=== PATIENT | female | born 1970 | race Caucasian/White ===

== ENCOUNTER 2017-01-12 17:52 | Emergency (ER) | payer BC, OTHER ==
--- NOTE | 2017-01-12 17:53 | PDOC ---
History of Present Illness - General History Source: Patient Exam Limitations: No Limitations <Elizabeth Jeronimo - Last Filed: 01/12/17 18:59> - General History Source: Patient Exam Limitations: No Limitations <Concepcion Acosta - Last Filed: 01/13/17 08:41> - General Chief Complaint: Chest Pain Stated Complaint: chest pain Time Seen by Provider: 01/12/17 17:52 - History of Present Illness Initial Comments: 01/12/17 18:12 The patient is a 46 year old female, with no significant past medical history , who presents today complaining of chest pain that feels like pressure which woke her up from sleep at 5:30 this morning. She notes that she felt some tingling in the left palm at the same time that she woke up, but the tingling resolved when she stopped leaning on her hand. She took a Tums and the chest pain resolved until 4:30 this evening. The pain feels like the same pressure as this morning and has not worsened. She notes that she had fried chicken last night for dinner and had a salad today for lunch. She notes that she had an endoscopy recently and was told by the doctor that she can take zantac as needed. Denies nausea, vomiting, fever, chills. Denies SOB, palpitations. Denies cough. Allergies: NKDA (Elizabeth Jeronimo) Past History <Elizabeth Jeronimo - Last Filed: 01/12/17 18:59> <Concepcion Acosta - Last Filed: 01/13/17 08:41> - Past Medical History Allergies/Adverse Reactions: Allergies Allergy/AdvReac Type Severity Reaction Status Date / Time No Known Allergies Allergy Verified 01/12/17 17:53 Home Medications: Ambulatory Orders NK [No Known Home Medication] 01/12/17 Review of Systems <Elizabeth Jeronimo - Last Filed: 01/12/17 18:59> <Concepcion Acosta - Last Filed: 01/13/17 08:41> - Review of Systems Comments:: 01/12/17 18:13 GENERAL/CONSTITUTIONAL: No: fever, chills, weakness, loss of appetite. HEAD, EYES, EARS, NOSE AND THROAT: No: change in vision, ear pain, discharge, sore throat, throat swelling. CARDIOVASCULAR: +chest pain. No: lightheadedness, palpitations, syncope RESPIRATORY: No: cough, shortness of breath, wheezing, hemoptysis, stridor. GASTROINTESTINAL: No: nausea, vomiting, abdominal cramping, diarrhea, rectal bleeding, constipation. GENITOURINARY: No: dysuria, hematuria, frequency, urgency, flank pain. MUSCULOSKELETAL: No: back pain, neck pain, joint pain, muscle swelling or pain SKIN: No: lesions, pallor, rash or easy bruising. NEUROLOGIC: No: headache, vertigo, paresthesias, weakness ENDOCRINE: No: unexplained weight gain or loss HEMATOLOGIC/LYMPHATIC: No: anemia, easy bleeding, swelling nodes (Elizabeth Jeronimo) *Physical Exam <Elizabeth Jeronimo - Last Filed: 01/12/17 18:59> <Concepcion Acosta - Last Filed: 01/13/17 08:41> - Vital Signs Last Vital Signs Temp Pulse Resp BP Pulse Ox 98.5 F 82 20 125/82 99 01/12/17 17:52 01/12/17 17:52 01/12/17 17:52 01/12/17 17:52 01/12/17 17:52 - Physical Exam Comments: 01/12/17 18:59 GENERAL: The patient is in no acute distress. HEAD: Normal with no signs of trauma. EYES: PERRLA, EOMI, sclera anicteric, conjunctiva clear. ENT: Ears normal, nares patent, oropharynx clear without exudates. Moist mucous membranes. NECK: Normal range of motion, supple without lymphadenopathy, JVD, or masses. LUNGS: Breath sounds equal, clear to auscultation bilaterally. No wheezes, and no crackles. HEART:Regular rate and rhythm, normal S1 and S2 without murmur, rub or gallop. ABDOMEN: Soft, nontender, normoactive bowel sounds. No guarding, no rebound. EXTREMITIES: Normal range of motion, no edema. No clubbing or cyanosis. No erythema, or tenderness. NEUROLOGICAL: Cranial nerves II through XII grossly intact. Normal speech. No focal neurological deficits. MUSCULOSKELETAL: Back nontender to palpation, no CVA tenderness SKIN: Warm, Dry, normal turgor, no rashes or lesions noted. (Elizabeth Jeronimo) Heart Score/ECG Review <Elizabeth Jeronimo - Last Filed: 01/12/17 18:59> #1 ECG reviewed & interpreted by me at: 18:22 <Concepcion Acosta - Last Filed: 01/13/17 08:41> #1 01/12/17 18:23 Twelve-lead EKG was performed and reviewed by me. There is normal sinus rhythm with a normal rate of 70 bpm. The axis is normal. The intervals are normal - pr: 170ms, QRS:86ms, QTc:434ms. There are no ST or T wave abnormalities. Impression: Normal twelve-lead EKG (Concepcion Acosta) ED Treatment Course - LABORATORY CBC & Chemistry Diagram: 01/12/17 18:14 01/12/17 18:14 <Elizabeth Jeronimo - Last Filed: 01/12/17 18:59> - LABORATORY CBC & Chemistry Diagram: 01/12/17 18:14 01/12/17 18:14 <Concepcion Acosta - Last Filed: 01/13/17 08:41> - ADDITIONAL ORDERS Additional order review: Laboratory Results 01/12/17 01/12/17 22:20 18:20 Troponin I < 0.03 L Beta HCG, Quant 3.8 01/12/17 18:14 RBC 4.54 MCV 78.9 L MCHC 33.5 RDW 15.3 MPV 9.1 Neutrophils % 53.7 Lymphocytes % 36.1 Monocytes % 7.3 Eosinophils % 1.8 Basophils % 1.1 - Medications Given in the ED: ED Medications Discontinued Medications Generic Name Dose Route Start Last Admin Trade Name Xvaierq PRN Reason Stop Dose Admin Al Hydroxide/Mg Hydroxide 30 ml 01/12/17 18:07 01/12/17 18:33 Mylanta Oral Suspension - PO 01/12/17 18:08 30 ml ONCE ONE Administration Ranitidine HCl 150 mg 01/12/17 18:07 01/12/17 18:33 Zantac - PO 01/12/17 18:08 150 mg ONCE ONE Administration Medical Decision Making <Elizabeth Jeronimo - Last Filed: 01/12/17 18:59> <Concepcion Acosta - Last Filed: 01/13/17 08:41> - Medical Decision Making A portion of this note was documented by scribe services under my direction. I have reviewed the details of the note, within reason, and agree with the documentation with the following case summary and management plan written by me. Nursing documentation reviewed and incorporated into medical decision making 01/12/17 18:24 This is a 46-year-old female with no significant past medical history, no cardiac risk factors who presents emergency department with a complaint of chest pain. Patient states she woke with her symptoms this morning, describes them as pressure. Symptoms are nonexertional. Symptoms are not associated with diaphoresis or nausea. Symptoms are not associated with syncope, loss of postural stability Chest pain does not radiate to the arms or back. No prior episodes like this. Patient states when her symptoms began, she took an aspirin and noted resolution of her symptoms. This evening at approximately 4:00 her symptoms returned again. DD includes: Gastritis/dyspepsia, ACS (less likely given paucity of risk factors ), unlikely PE (PERC neg, Wells Low risk), Will do labs Will do EKG Will re assess Pt signed out to Dr Musa (Concepcion Acosta) *DC/Admit/Observation/Transfer <Elizabeth Jeronimo - Last Filed: 01/12/17 18:59> - Discharge Dispostion Admit: No <Concepcion Acosta - Last Filed: 01/13/17 08:41> Diagnosis at time of Disposition: Dyspepsia Chest pain Qualifiers: Chest pain type: unspecified Qualified Code(s): R07.9 - Chest pain, unspecified - Discharge Dispostion Disposition: HOME Condition at time of disposition: Stable - Referrals Referrals: Nika Schmidt MD [Staff Physician] - Julien Camacho MD [Staff Physician] - - Patient Instructions Printed Discharge Instructions: DI for Chest Pain, DI for Atypical Chest Pain Additional Instructions: Please follow up with your PMD. Please return to the ED with any further concerns. Please follow up with the cut off tender glass for further eval of your cp. - Attestations Scribe Attestion: 01/12/17 18:13 Documentation prepared by TORREY Dorantes, acting as veterinary medical officer for Concepcion Acosta MD. (Elizabeth Jeronimo)
[2017-01-12] MEDS ORDERED: MAG HYDROX/AL HYDROX/SIMETH 30 ML UNIT-DOSE CUP PO ONE (18:07)
[2017-01-12] MEDS ORDERED: RANITIDINE HCL 150 MG TABLET (FP) PO ONE (18:07)
[2017-01-12 18:10] VITALS: BP 125/82; PULSE 82; TEMP 98.5; BMI 27.6
[2017-01-12] MEDS ORDERED: RANITIDINE HCL 150 MG TABLET (FP) ONE (18:30)
[2017-01-12] MEDS ORDERED: MAG HYDROX/AL HYDROX/SIMETH 30 ML UNIT-DOSE CUP ONE (18:30)
[2017-01-12 18:32] LABS: BASOPHIL 1.1 % (0-2.0); EOSINOPHIL 1.8 % (0-4.5); NEUTROPHILS 53.7 % (42.8-82.8)
[2017-01-12 18:34] LABS: MCH 26.4 pg (25.7-33.7); MCHC 33.5 g/dl (32.0-36.0); MEAN CELL VOLUME 78.9 fl (80-96); MEAN PLT VOLUME 9.1 fl (7.5-11.1); PLATELET COUNT 214 K/MM3 (134-434); RDW 15.3 % (11.6-15.6); WHITE BLOOD COUNT 4.5 K/mm3 (4.0-10.8)
[2017-01-12 18:48] LABS: ALBUMIN 4.3 g/dl (3.5-5.0); ALK PHOS 61 U/L (32-92); ANION GAP 6 (8-16); BILIRUBIN,TOTAL 0.3 mg/dl (0.2-1.0); CALCIUM 9.2 mg/dl (8.4-10.2); CO2 25 mmol/L (22-28); CREATININE 0.7 mg/dl (0.6-1.3); GLUCOSE,RANDOM 83 mg/dl (74-106); SGOT/AST 17 U/L (10-42); SGPT/ALT 15 U/L (10-40); TOT PROT 7.4 g/dl (6.4-8.3)
--- NOTE | 2017-01-12 19:46 | PDOC ---
*Physical Exam - Vital Signs Last Vital Signs Temp Pulse Resp BP Pulse Ox 98.5 F 82 20 125/82 99 01/12/17 17:52 01/12/17 17:52 01/12/17 17:52 01/12/17 17:52 01/12/17 17:52 - Physical Exam Comments: 01/12/17 20:05 Constitutional: Awake, alert, oriented. No acute distress. Head: Normocephalic. Atraumatic Eyes: PERRL. EOMI. Conjunctivae are not pale. ENT: Mucous membranes are moist and intact. Posterior pharynx without exudates or erythema. Uvula midline. Neck: Supple. Full ROM. No lymphadenopathy. Cardiovascular: Regular rate. Regular rhythm. S1, S2 regular. Distal pulses are 2+ and symmetric. Pulmonary/Chest: No evidence of respiratory distress. Clear to auscultation bilaterally No wheezing, rales or rhonchi. Abdominal: Soft and non-distended. There is no tenderness. No rebound, guarding or rigidity. No organomegaly. No palpable masses. Good bowel sounds. Back: No CVA tenderness. Musculoskeletal: No edema. No cyanosis. No clubbing. Full range of motion in all extremities. Nocalf tenderness. Radial/pedal pulses are intact and 2+ bilaterally Skin: Skin is warm and dry. No petechiae. No purpura. Neurological: Alert and oriented to person, place, and time. Cranial nerves II -XII are grossly intact. Normal speech. Strength is grossly symmetric. No sensory deficits. Psychiatric: Good eye contact. Normal interaction, affect and behavior. <Elizabeth Jeronimo - Last Filed: 01/12/17 20:05> - Vital Signs Last Vital Signs Temp Pulse Resp BP Pulse Ox 98.5 F 82 20 125/82 99 01/12/17 17:52 01/12/17 17:52 01/12/17 17:52 01/12/17 17:52 01/12/17 17:52 <Kim Rashid - Last Filed: 01/12/17 23:26> Heart Score/ECG Review - ECG Intrepretation Comment:: 01/12/17 23:22 repeat ekg: sinus at 63, nl axis, nl interval, no acute st/t wave findings <Kim Rashid - Last Filed: 01/12/17 23:26> ED Treatment Course - LABORATORY CBC & Chemistry Diagram: 01/12/17 18:14 01/12/17 18:14 - ADDITIONAL ORDERS Additional order review: Laboratory Results 01/12/17 01/12/17 01/12/17 18:14 18:14 18:14 Sodium 135 L Potassium 3.6 Chloride 104 Carbon Dioxide 25 Anion Gap 6 L BUN 12 Creatinine 0.7 Creat Clearance w eGFR > 60 Random Glucose 83 Calcium 9.2 Total Bilirubin 0.3 AST 17 ALT 15 Alkaline Phosphatase 61 Troponin I < 0.03 L Total Protein 7.4 Albumin 4.3 Serum , Qual Negative 01/12/17 18:14 RBC 4.54 MCV 78.9 L MCHC 33.5 RDW 15.3 MPV 9.1 Neutrophils % 53.7 Lymphocytes % 36.1 Monocytes % 7.3 Eosinophils % 1.8 Basophils % 1.1 - Medications Given in the ED: ED Medications Discontinued Medications Generic Name Dose Route Start Last Admin Trade Name Freq PRN Reason Stop Dose Admin Al Hydroxide/Mg Hydroxide 30 ml 01/12/17 18:07 01/12/17 18:33 Mylanta Oral Suspension - PO 01/12/17 18:08 30 ml ONCE ONE Administration Ranitidine HCl 150 mg 01/12/17 18:07 01/12/17 18:33 Zantac - PO 01/12/17 18:08 150 mg ONCE ONE Administration <Elizabeth Jeronimo - Last Filed: 01/12/17 20:05> - LABORATORY CBC & Chemistry Diagram: 01/12/17 18:14 01/12/17 18:14 - ADDITIONAL ORDERS Additional order review: Laboratory Results 01/12/17 01/12/17 01/12/17 18:14 18:14 18:14 Sodium 135 L Potassium 3.6 Chloride 104 Carbon Dioxide 25 Anion Gap 6 L BUN 12 Creatinine 0.7 Creat Clearance w eGFR > 60 Random Glucose 83 Calcium 9.2 Total Bilirubin 0.3 AST 17 ALT 15 Alkaline Phosphatase 61 Troponin I < 0.03 L Total Protein 7.4 Albumin 4.3 Serum , Qual Negative 01/12/17 18:14 RBC 4.54 MCV 78.9 L MCHC 33.5 RDW 15.3 MPV 9.1 Neutrophils % 53.7 Lymphocytes % 36.1 Monocytes % 7.3 Eosinophils % 1.8 Basophils % 1.1 - Medications Given in the ED: ED Medications Discontinued Medications Generic Name Dose Route Start Last Admin Trade Name Sarbjit PRN Reason Stop Dose Admin Al Hydroxide/Mg Hydroxide 30 ml 01/12/17 18:07 01/12/17 18:33 Mylanta Oral Suspension - PO 01/12/17 18:08 30 ml ONCE ONE Administration Ranitidine HCl 150 mg 01/12/17 18:07 01/12/17 18:33 Zantac - PO 01/12/17 18:08 150 mg ONCE ONE Administration <Kim Rashid - Last Filed: 01/12/17 23:26> Medical Decision Making - Medical Decision Making 01/12/17 20:05 46 year old female with no significant past medical history who presented to the ED complaining of chest pain. -Chest pain has since resolved -discussed lab results -awaiting Beta HCG <Elizabeth Jeronimo - Last Filed: 01/12/17 20:05> - Medical Decision Making 01/12/17 23:23 pt signed out pending repeat trop. pt with atypical cp. no risk factors pt denies n/v/d, no sob. No leg swelling 01/12/17 23:23 repeat trop negative. repeat ekg without acute findings 01/12/17 23:23 pt updated. feels better. pt requesting to go home. discussed all reasons to return to the ED and need for follow up. Answered all questions. Pt stable for d /c to home. <Kim Rashid - Last Filed: 01/12/17 23:26> *DC/Admit/Observation/Transfer <Elizabeth Jeronimo - Last Filed: 01/12/17 20:05> - Attestations Physician Attestion: 01/12/17 23:26 I, Dr. Kim Rashid, DO, attest that this document has been prepared under my direction and personally reviewed by me in its entirety. I further attest, that it accurately reflects all work, treatment, procedures and medical decision -making performed by me. <Kim Rashid - Last Filed: 01/12/17 23:26> Diagnosis at time of Disposition: Dyspepsia Chest pain Qualifiers: Chest pain type: unspecified Qualified Code(s): R07.9 - Chest pain, unspecified - Discharge Dispostion Disposition: HOME Condition at time of disposition: Stable - Referrals Referrals: Nika Schimdt MD [Staff Physician] - Julien Camacho MD [Staff Physician] - - Patient Instructions Printed Discharge Instructions: DI for Atypical Chest Pain, DI for Chest Pain Additional Instructions: Please follow up with your PMD. Please return to the ED with any further concerns. Please follow up with the unix developer for further eval of your cp. - Post Discharge Activity
--- NOTE | 2017-01-13 18:42 | EKG ---
Test Reason : Blood Pressure : / mmHG Vent. Rate : 070 BPM Atrial Rate : 070 BPM P-R Int : 170 ms QRS Dur : 086 ms QT Int : 402 ms P-R-T Axes : 054 051 045 degrees QTc Int : 434 ms NORMAL SINUS RHYTHM WITH SINUS ARRHYTHMIA NO PREVIOUS ECGS AVAILABLE Confirmed by MD GEOVANY, SILVERIO ([id number]) on 01/13/2017 6:42:07 PM Referred By: DR DICKEY Confirmed By:SILVERIO ARMENTA MD
--- NOTE | 2017-01-14 09:36 | EKG ---
Test Reason : Blood Pressure : / mmHG Vent. Rate : 063 BPM Atrial Rate : 063 BPM P-R Int : 188 ms QRS Dur : 086 ms QT Int : 438 ms P-R-T Axes : 058 052 046 degrees QTc Int : 448 ms NORMAL SINUS RHYTHM WITH SINUS ARRHYTHMIA NORMAL ECG WHEN COMPARED WITH ECG OF 12-JAN-2017 18:14, NO SIGNIFICANT CHANGE WAS FOUND Confirmed by LORIE MAO MD ([id number]) on 01/14/2017 9:35:52 AM Referred By: DR GUZMÁN Confirmed By:LORIE MAO MD
== END 2017-01-12 23:32 | disposition home or self-care (01) ==
LOC: FER 17:52
DX: R10.13 Epigastric pain (principal)
CPT/HCPCS: 36415; 80053; 84484; 84702; 84703; 85025; 93005; 93010; 99283-25